=== PATIENT | male | born 1990 | race Caucasian/White ===

== ENCOUNTER 2017-05-18 11:51 | Emergency (ER) | payer OTHER ==
--- NOTE | 2017-05-18 13:22 | ER Document Report ---
ED General - General Chief Complaint: Vomiting Stated Complaint: VOMITING Time Seen by Provider: 05/18/17 12:25 Mode of Arrival: Ambulatory Information source: Patient Notes: 26 yr old male presents with concerns of vomiting small amount of blood after dry heaving multiple times today. pt notes it stems from coughing for the past month. Pt denies any productivity to the cough. pt denies any fevers or chills, denies any tb exposure TRAVEL OUTSIDE OF THE [place] IN LAST 30 DAYS: No - HPI Onset: Other Onset/Duration: Sudden Quality of pain: No pain Severity: Mild Pain Level: Denies Associated symptoms: Nonproductive cough, Vomiting Exacerbated by: Denies Relieved by: Denies Similar symptoms previously: No Recently seen / treated by doctor: No - Related Data Allergies/Adverse Reactions: No Known Allergies Allergy (Verified 05/18/17 11:52) Past Medical History - Social History Smoking Status: Current Every Day Smoker Cigarette use (# per day): Yes Chew tobacco use (# tins/day): No Smoking Education Provided: Yes - Patient counselled regarding cessation for 4 minutes Frequency of alcohol use: None Drug Abuse: None Family History: None, Reviewed & Not Pertinent Patient has suicidal ideation: No Patient has homicidal ideation: No Renal/ Medical History: Denies: Hx Peritoneal Dialysis GI Medical History: Reports: Hx Gastroesophageal Reflux Disease Psychiatric Medical History: Reports: Hx Anxiety Past Surgical History: Reports: Hx Orthopedic Surgery - b/l shoulder - Immunizations Hx Diphtheria, Pertussis, Tetanus Vaccination: Yes Review of Systems - Review of Systems Notes: REVIEW OF SYSTEMS: CONSTITUTIONAL : Denies fever, chills, or sweats. Denies recent illness. EENT: Denies eye, ear, throat, or mouth pain or symptoms. Denies nasal or sinus congestion or discharge. Denies throat, tongue, or mouth swelling or difficulty swallowing. CARDIOVASCULAR: Denies chest pain. Denies palpitations or racing or irregular heart beat. Denies ankle edema. RESPIRATORY: admits to cough GASTROINTESTINAL: admits t oovmiting blood GENITOURINARY: Denies difficulty urinating, painful urination, burning, frequency, blood in urine, or discharge. MUSCULOSKELETAL: Denies back or neck pain or stiffness. Denies joint pain or swelling. SKIN: Denies rash, lesions or sores. HEMATOLOGIC : Denies easy bruising or bleeding. LYMPHATIC: Denies swollen, enlarged glands. NEUROLOGICAL: Denies confusion or altered mental status. Denies passing out or loss of consciousness. Denies dizziness or lightheadedness. Denies headache. Denies weakness or paralysis or loss of use of either side. Denies problems with gait or speech. Denies sensory loss, numbness, or tingling. Denies seizures. PSYCHIATRIC: Denies anxiety or stress. Denies depression, suicidal ideation, or homicidal ideation. ALL OTHER SYSTEMS REVIEWED AND NEGATIVE. Dictation was performed using [employer] voice recognition software PHYSICAL EXAMINATION: GENERAL: Well-appearing, well-nourished and in no acute distress. HEAD: Atraumatic, normocephalic. EYES: Pupils equal round and reactive to light, extraocular movements intact, sclera anicteric, conjunctiva are normal. ENT: Nares patent, oropharynx clear without exudates. Moist mucous membranes. NECK: Normal range of motion, supple without lymphadenopathy LUNGS: Breath sounds clear to auscultation bilaterally and equal. No wheezes rales or rhonchi. HEART: Regular rate and rhythm without murmurs ABDOMEN: Soft, nontender, nondistended abdomen. No guarding, no rebound. No masses appreciated. Musculoskeletal: Normal range of motion, no pitting or edema. No cyanosis. NEUROLOGICAL: Cranial nerves grossly intact. Normal speech, normal gait. Normal sensory, motor exams PSYCH: Normal mood, normal affect. SKIN: Warm, Dry, normal turgor, no rashes or lesions noted. Physical Exam - Vital signs Vitals: Temp Pulse Resp BP Pulse Ox 98.9 F 95 20 117/70 97 05/18/17 12:04 05/18/17 12:04 05/18/17 12:04 05/18/17 12:04 05/18/17 12:04 Course - Re-evaluation Re-evalutation: 05/18/17 13:21 pts exam , complaint is extremely benign, probably esophageal irritation from dry heaves, no signs of boerhaves syndrome. 05/18/17 14:28 X-ray noted no significant abnormality looks extremely well, patient is resting comfortably, I believe his symptoms are all secondary to the dry heaves. Patient's will be placed on anti-tussive After performing a Medical Screening Examination, I estimate there is LOW risk for ACUTE APPENDICITIS, BOWEL OBSTRUCTION, ACUTE CHOLECYSTITIS, PERFORATED DIVERTICULITIS, INCARCERATED HERNIA, PANCREATITIS, TESTICULAR TORSION or PERFORATED ULCER, thus I consider the discharge disposition reasonable. Also, there is no evidence or peritonitis, sepsis, or toxicity. I have reevaluated this patient multiple times and no significant life threatening changes are noted. The patient and I have discussed the diagnosis and risks, and we agree with discharging home with close follow-up with the understanding that symptoms and presentations can change. We also discussed returning to the Emergency Department immediately if new or worsening symptoms occur. We have discussed the symptoms which are most concerning (e.g., bloody stool, fever, changing or worsening pain, intractable vomiting - standard verbal up date) that necessitate immediate return. - Vital Signs Vital signs: Temp Pulse Resp BP Pulse Ox 98.2 F 67 16 117/71 99 05/18/17 14:22 05/18/17 14:22 05/18/17 14:22 05/18/17 14:22 05/18/17 14:22 - Diagnostic Test Radiology reviewed: Image reviewed, Reports reviewed Discharge - Discharge Clinical Impression: Vomiting blood Qualifiers: Nausea presence: with nausea Qualified Code(s): K92.0 - Hematemesis Condition: Stable Disposition: HOME, SELF-CARE Instructions: Antacid Therapy ([facility]), Upper Gastrointestinal Bleeding ([facility]) Referrals: DAGO WHITEHEAD MD [ACTIVE STAFF] - Follow up tomorrow
--- NOTE | 2017-05-18 13:58 | RADIOLOGY REPORT (SQ) ---
EXAM DESCRIPTION: CHEST PA/LAT COMPLETED DATE/TIME: 05/18/2017 1:08 pm REASON FOR STUDY: cough COMPARISON: 03/15/2013. EXAM PARAMETERS: NUMBER OF VIEWS: two views TECHNIQUE: Digital Frontal and Lateral radiographic views of the chest acquired. RADIATION DOSE: NA LIMITATIONS: none FINDINGS: LUNGS AND PLEURA: No infiltrate, masses or pneumothorax. No pleural effusion. MEDIASTINUM AND HILAR STRUCTURES: No masses or contour abnormalities. HEART AND VASCULAR STRUCTURES: Heart normal size. No evidence for failure. BONES: No acute findings. HARDWARE: None in the chest. OTHER: No other significant finding. IMPRESSION: NO ACUTE DISEASE. TECHNICAL DOCUMENTATION: JOB ID: [id number] [email or web address]- All Rights Reserved
[2017-05-18 14:23] VITALS: BP 117/71
== END 2017-05-18 14:23 | disposition home or self-care (01) ==
LOC: ER 11:51
DX: K92.0 Hematemesis (principal); R05 Cough; F17.210 Nicotine dependence, cigarettes, uncomplicated; Z71.6 Tobacco abuse counseling
CPT/HCPCS: 71046; 99284

== ENCOUNTER → 2018-04-27 | Outpatient (CLI) | payer SELFPAY ==
[2018-04-27 12:52] LABS: CHLAM PCR NOT DETECTED (NOT DETECT); GON PCR NOT DETECTED (NOT DETECT)
== END ==
LOC: LAB 11:11
PROVIDERS: ATTEND Nurse Practitioner Family
DX: Z20.2 Contact with and (suspected) exposure to infections with a predominantly sexual mode of transmission (principal)
CPT/HCPCS: 87491; 87591